=== PATIENT | female | born 1995 | race Caucasian/White ===

== ENCOUNTER 2019-09-21 10:04 | Emergency (ER) | payer OTHER, SELFPAY ==
[2019-09-21 10:08] VITALS: BP 131/95; PULSE 96; RESP 16; TEMP 36.6; O2SAT 100; BMI 23.3
--- NOTE | 2019-09-21 10:18 | ED_ITS ---
HPI - General Adult General: Chief complaint: General Medical Stated complaint: throat pain/fever/vomiting Time Seen by Provider: 09/21/19 10:18 Source: patient Mode of arrival: ambulatory Limitations: no limitations History of Present Illness: HPI narrative: 24-year-old female comes in today with 3-day history of chills, fever, throat pain, cough. Patient was seen at primary care on Sunday and diagnosed with flu syndrome. Patient was written prescriptions for ibuprofen. Patient reports difficulty holding medication down due to nausea and vomiting. Patient appears mildly unwell. Patient appears in mild pain/discomfort. Associated symptoms: Reports headache(s), malaise, nausea and vomiting Review of Systems General: Reports: 10 or more systems reviewed and unremarkable except in HPI and below Const: Reports: fever and malaise ENMT: Reports: throat pain Resp: Reports: non-productive cough GI: Reports: nausea and vomiting Neuro: Reports: headache PFSH ED PFSH: Statuses (acute, chronic, etc) shown below reflect problem list status as previously entered and may not be historically accurate Social History Smoking and tobacco status: never smoked Female Reproductive History: Date of last menstrual period: 09/10/19 Physical Exam Const: COMMON NORMALS: no apparent distress and oriented x3 GENERAL APPEARANCE: cooperative HENMT: COMMON NORMALS: normocephalic, external ears normal, EAC's normal, TM's normal bilaterally and external nose normal HEAD & SCALP: normal to inspection and normocephalic FACE & SINUS: normal facial exam NOSE: external nose normal and mucous membranes and turbinates abnormal erythematous GENERAL EAR: hearing not grossly impaired EXTERNAL EAR: Yes external ears normal EXTERNAL AUDITORY CANAL: EAC's normal TYMPANIC MEMBRANE: TM's normal bilaterally MOUTH: oral and palatal mucosa normal THROAT: posterior oropharynx abnormal erythema Eye: COMMON NORMALS: PERRL and EOMs intact bilaterally PUPIL: Yes PERRL Neck/C-Spine: COMMON NORMALS: full ROM and no lymphadenopathy Lymph: LYMPHATIC: no lymphedema noted Chest: COMMONS NORMALS: inspection of chest normal and palpation of chest normal Resp: COMMON NORMALS: normal respiratory effort and clear to auscultation bilaterally AUSCULTATION: clear to auscultation bilaterally Cardio: COMMON NORMALS: regular rate and regular rhythm RATE: regular rate RHYTHM: regular rhythm GI: COMMON NORMALS: normal to inspection, nondistended, normoactive bowel sounds and non-tender : COMMON NORMALS: Yes no CVA tenderness BLADDER/KIDNEY EXAM: Yes no CVA tenderness Back/Pelvis: COMMON NORMALS: no CVA tenderness and thoracic and lumbar spine normal to inspection Extremity: COMMON NORMALS: normal to inspection GENERAL: No edema Neuro: COMMON NORMALS: oriented x3, moves all extremities and no focal motor deficits Psych: COMMON NORMALS: mental status grossly normal and cooperative Skin: COMMON NORMALS: no rashes or lesions noted GENERAL SKIN EXAM: no rashes or lesions noted Course Vital Signs: Vital signs: Vital Signs Temperature 97.9 F 09/21/19 10:08 Pulse Rate 93 09/21/19 12:38 Respiratory Rate 16 09/21/19 12:38 Blood Pressure 102/67 09/21/19 12:38 Pulse Oximetry 100 09/21/19 12:38 MDM - General Adult MDM Narrative: Medical decision making narrative: Patient comes in today for complaints of nausea vomiting with fever for the last 3 days. Patient complains of sore throat. Patient denies any abdominal pain. Exam notes soft abdomen nontender. Respirations even lungs are clear to auscultation. Differential diagnosis includes influenza, strep pharyngitis, gastroenteritis, viral syndrome, urinary tract infection. Laboratory values were significant for some mild hyponatremia at 135 sodium. Blood cell count was normal. Urinalysis was clear. Patient tested negative for the flu and strep. Patient had a negative test. Patient was given medication for nausea and IV fluids for mild dehydration. Reviewed exam with patient with recommendations for treatment for influenza. Recommend patient return to the ER for worsening signs and symptoms or new concerns. Patient reports understanding and agreed to plan. Lab Data: Labs: Lab Results 09/21/19 09/21/19 09/21/19 Range/Units 10:37 10:38 10:38 WBC 5.9 (4.0-10.0) 10^3/ uL RBC 3.90 L (4.1-5.3) 10^6/u L Hgb 12.6 (11.5-15.3) g/dL Hct 38.7 (37.0-47.0) % MCV 99.2 H (81-99) fL MCH 32.3 (28.0-34.0) pg MCHC 32.6 (30.0-36.0) g/dL RDW 12.3 (12.1-15.1) % Plt Count 260 (130-400) 10^3/c mm MPV 10.2 (7.4-10.4) fL Neut % (Auto) 64.2 % Lymph % (Auto) 26.1 % Cavalier % (Auto) 8.4 % Eos % (Auto) 0.8 % Baso % (Auto) 0.3 % Neut # (Auto) 3.8 (1.8-7.7) 10^3/u L Lymph # (Auto) 1.6 (0.8-4.8) 10^3/u L Cavalier # (Auto) 0.5 (0.2-0.9) 10^3/u L Eos # (Auto) 0.1 (0.0-0.8) 10^3/u L Baso # (Auto) 0.0 (0.0-0.1) 10^3/u L Nucleated RBC % (a uto) 0 % Nucleated RBCs # 0.0 /100WBC Sodium 135 L (136-145) mmol/L Potassium 3.9 (3.5-5.1) mmol/L Chloride 102 (98-107) mmol/L Carbon Dioxide 22 (22-29) mmol/L Anion Gap 14.9 (5-19) BUN 7 (6-20) mg/dL Creatinine 0.7 (0.5-0.9) mg/dL GFR Calculation 103.7 (90-130) mL/min Glucose 106 (65-115) mg/dL Lactic Acid (0.5-2.2) mmol/L Calcium 9.2 (8.5-10.5) mg/dL Total Bilirubin 0.5 (0.15-1.2) mg/dL AST 23 (0-32) U/L ALT 13 (0-33) U/L Alkaline Phosphata se 64 (35-105) IU/L Total Protein 7.7 (6.6-8.7) g/dL Albumin 4.1 (3.5-5.2) g/dL Globulin 3.6 (1.3-4.6) g/dL Urine Color (Yellow) Urine Appearance (CLEAR) Urine pH (5-7) Ur Specific Gravit y (1.005-1.030) Urine Protein (Negative) Urine Glucose (UA) (Normal) Urine Ketones (Negative) Urine Occult Blood (Negative) Urine Nitrate (Negative) Urine Bilirubin (NEGATIVE) Urine Urobilinogen (Negative) mg/dL Ur Leukocyte Paloma ase (Negative) Urine HCG, Qual (Negative) Influenza Type A A g (Negative) POC Influenza B Ag (Negative) Group A Strep Rapi d Negative (Negative) 09/21/19 09/21/19 09/21/19 Range/Units 10:38 10:38 11:15 WBC (4.0-10.0) 10^3/ uL RBC (4.1-5.3) 10^6/u L Hgb (11.5-15.3) g/dL Hct (37.0-47.0) % MCV (81-99) fL MCH (28.0-34.0) pg MCHC (30.0-36.0) g/dL RDW (12.1-15.1) % Plt Count (130-400) 10^3/c mm MPV (7.4-10.4) fL Neut % (Auto) % Lymph % (Auto) % Cavalier % (Auto) % Eos % (Auto) % Baso % (Auto) % Neut # (Auto) (1.8-7.7) 10^3/u L Lymph # (Auto) (0.8-4.8) 10^3/u L Cavalier # (Auto) (0.2-0.9) 10^3/u L Eos # (Auto) (0.0-0.8) 10^3/u L Baso # (Auto) (0.0-0.1) 10^3/u L Nucleated RBC % (a uto) % Nucleated RBCs # /100WBC Sodium (136-145) mmol/L Potassium (3.5-5.1) mmol/L Chloride (98-107) mmol/L Carbon Dioxide (22-29) mmol/L Anion Gap (5-19) BUN (6-20) mg/dL Creatinine (0.5-0.9) mg/dL GFR Calculation (90-130) mL/min Glucose (65-115) mg/dL Lactic Acid 1.0 (0.5-2.2) mmol/L Calcium (8.5-10.5) mg/dL Total Bilirubin (0.15-1.2) mg/dL AST (0-32) U/L ALT (0-33) U/L Alkaline Phosphata se (35-105) IU/L Total Protein (6.6-8.7) g/dL Albumin (3.5-5.2) g/dL Globulin (1.3-4.6) g/dL Urine Color (Yellow) Urine Appearance (CLEAR) Urine pH (5-7) Ur Specific Gravit y (1.005-1.030) Urine Protein (Negative) Urine Glucose (UA) (Normal) Urine Ketones (Negative) Urine Occult Blood (Negative) Urine Nitrate (Negative) Urine Bilirubin (NEGATIVE) Urine Urobilinogen (Negative) mg/dL Ur Leukocyte Paloma ase (Negative) Urine HCG, Qual Negative (Negative) Influenza Type A A g Negative (Negative) POC Influenza B Ag Negative (Negative) Group A Strep Rapi d (Negative) 09/21/19 Range/Units 11:15 WBC (4.0-10.0) 10^3/ uL RBC (4.1-5.3) 10^6/u L Hgb (11.5-15.3) g/dL Hct (37.0-47.0) % MCV (81-99) fL MCH (28.0-34.0) pg MCHC (30.0-36.0) g/dL RDW (12.1-15.1) % Plt Count (130-400) 10^3/c mm MPV (7.4-10.4) fL Neut % (Auto) % Lymph % (Auto) % Cavalier % (Auto) % Eos % (Auto) % Baso % (Auto) % Neut # (Auto) (1.8-7.7) 10^3/u L Lymph # (Auto) (0.8-4.8) 10^3/u L Cavalier # (Auto) (0.2-0.9) 10^3/u L Eos # (Auto) (0.0-0.8) 10^3/u L Baso # (Auto) (0.0-0.1) 10^3/u L Nucleated RBC % (a uto) % Nucleated RBCs # /100WBC Sodium (136-145) mmol/L Potassium (3.5-5.1) mmol/L Chloride (98-107) mmol/L Carbon Dioxide (22-29) mmol/L Anion Gap (5-19) BUN (6-20) mg/dL Creatinine (0.5-0.9) mg/dL GFR Calculation (90-130) mL/min Glucose (65-115) mg/dL Lactic Acid (0.5-2.2) mmol/L Calcium (8.5-10.5) mg/dL Total Bilirubin (0.15-1.2) mg/dL AST (0-32) U/L ALT (0-33) U/L Alkaline Phosphata se (35-105) IU/L Total Protein (6.6-8.7) g/dL Albumin (3.5-5.2) g/dL Globulin (1.3-4.6) g/dL Urine Color Straw (Yellow) Urine Appearance Clear (CLEAR) Urine pH 6 (5-7) Ur Specific Gravit y 1.015 (1.005-1.030) Urine Protein Neg (Negative) Urine Glucose (UA) Norm (Normal) Urine Ketones Negative (Negative) Urine Occult Blood Neg (Negative) Urine Nitrate Negative (Negative) Urine Bilirubin Neg (NEGATIVE) Urine Urobilinogen 1 H (Negative) mg/dL Ur Leukocyte Paloma ase Negative (Negative) Urine HCG, Qual (Negative) Influenza Type A A g (Negative) POC Influenza B Ag (Negative) Group A Strep Rapi d (Negative) Discharge Plan Discharge Patient Disposition: Home, Self-Care Clinical Impression: Acute viral syndrome Vomiting Qualifiers: Vomiting type: unspecified Vomiting Intractability: unspecified Nausea presence: with nausea Qualified Code(s): R11.2 - Nausea with vomiting, unspecified Condition: Stable Prescriptions: New ondansetron HCl 4 mg tablet 4 mg PO Q8H PRN (Reason: nausea and vomiting) Qty: 10 RF: 0 oseltamivir 75 mg capsule 75 mg PO BID 5 Days Qty: 10 RF: 0 Discharge Diet: Clear Liquid Discharge Activity: Increase activity as tolerated Patient Instructions: Influenza (ED), Gastroenteritis (ED) Activity Restrictions/Additional Instructions: Continue drinking plenty of fluids Flu syndrome usually runs it course in 5-7 days Fever will break around day 5 I have prescribed medication for nausea I have also prescribed antiviral for the flu virus, use the medication as directed Acetaminophen and ibuprofen for fever and pain Acetaminophen may not bother your stomach as much as ibuprofen Follow-up with primary care in three days for recheck Return to ER for persistent vomiting or new concerns A culture or your throat and blood has been collected if anything grows in the culture that needs antibiotics we will call you Stand Alone Forms: Work/School Release Discharge Date/Time: 09/21/19 12:30 Coding Level of Care Code ED [employer] for [employer] Fwd Exam Problem Focused
[2019-09-21 10:38] VITALS: RESP 16
[2019-09-21] MEDS: sodium chloride 0.9% 1,000 ML 999 ML IV (10:43)
[2019-09-21] MEDS: ondansetron 2 mg/ML SDV 2 mL 4 MG IVP ×2 (10:43→12:11)
[2019-09-21 10:45] LABS: Basophils % 0.3 %; Eosinophils # 0.1 10^3/uL (0.0-0.8); Eosinophils % 0.8 %; Hematocrit 38.7 % (37.0-47.0); Hemoglobin 12.6 g/dL (11.5-15.3); Lymphocytes # 1.6 10^3/uL (0.8-4.8); Lymphocytes % 26.1 %; Mean Corpuscular HGB Conc 32.6 g/dL (30.0-36.0); Mean Corpuscular Hemoglobin 32.3 pg (28.0-34.0); Mean Corpuscular Volume 99.2 fL (81-99); Mean Platelet Volume 10.2 fL (7.4-10.4); Monocytes # 0.5 10^3/uL (0.2-0.9); Monocytes % 8.4 %; Neutrophils # 3.8 10^3/uL (1.8-7.7); Neutrophils % 64.2 %; Nucleated Red Blood Cells % 0 %; Platelet Count 260 10^3/cmm (130-400); Red Cell Distribution Width 12.3 % (12.1-15.1); White Blood Count 5.9 10^3/uL (4.0-10.0)
[2019-09-21 10:51] VITALS: RESP 16
[2019-09-21 11:03] LABS: Rapid Strep A Test Negative (Negative)
[2019-09-21 11:05] LABS: Alanine Aminotransferase 13 U/L (0-33); Albumin Level 4.1 g/dL (3.5-5.2); Alkaline Phosphatase 64 IU/L (35-105); Anion Gap 14.9 (5-19); Blood Urea Nitrogen 7 mg/dL (6-20); Calcium 9.2 mg/dL (8.5-10.5); Carbon Dioxide 22 mmol/L (22-29); Chloride 102 mmol/L (98-107); Creatinine Clr Calc Pharmacy 122.1191; Globulin 3.6 g/dL (1.3-4.6); Glomerular Filtration Rate 103.7 mL/min (90-130); Glucose 106 mg/dL (65-115); Potassium 3.9 mmol/L (3.5-5.1); Sodium 135 mmol/L (136-145); Total Bilirubin 0.5 mg/dL (0.15-1.2); Total Protein 7.7 g/dL (6.6-8.7)
[2019-09-21 11:08] LABS: Aspartate Amino Transferase 23 U/L (0-32)
[2019-09-21 11:20] LABS: Add Urine Microscopic? NO
[2019-09-21 11:24] LABS: Urine Appearance Clear (CLEAR); Urine Color Straw (Yellow)
[2019-09-21 11:25] LABS: Bilirubin Urine Neg (NEGATIVE); Blood Urine Neg (Negative); Glucose Urine UA Norm (Normal); Ketones Urine Negative (Negative); Leukocyte Esterase Urine Negative (Negative); Nitrate Urine Negative (Negative); Protein Urine Neg (Negative); Specific Gravity, Urine 1.015 (1.005-1.030); Urobilinogen Urine 1 mg/dL (Negative); pH Urine 6 (5-7)
[2019-09-21 11:30] LABS: Influenza A by IFA Negative (Negative); Influenza B by IFA Negative (Negative)
--- NOTE | 2019-09-21 11:33 | XR_ITS ---
WS: [id number] ONE VIEW CHEST HISTORY: 24 years old Female with fever, cough AP upright chest no comparison FINDINGS: No pneumothorax, pleural effusion, consolidation/atelectasis. Cardiomediastinal silhouette and pulmon gab vascular markings are unremarkable. Upper abdomen unremarkable. Osseous structures intact. XR/XR chest 1V portable [id number] IMPRESSION: No acute cardiopulmonary findings.
[2019-09-21 11:55] VITALS: BP 97/67; PULSE 92; RESP 16; O2SAT 98
[2019-09-21] MEDS: dexamethasone 10 mg/mL INJ IVP (12:05)
[2019-09-21 12:38] VITALS: BP 102/67; PULSE 93; RESP 16; O2SAT 100
== END 2019-09-21 12:30 | disposition home or self-care (01) ==
PROVIDERS: Emergency Provider Nurse Practitioner Family
DX: B34.9 Viral infection, unspecified (principal)
CPT/HCPCS: 36415; 71045; 80053; 81003; 81025; 83605; 85025; 87040; 87081; 87804; 87880; 96360; 96361; 96374; 96375; 96376; 99284; J1100; J2405; J7030